=== PATIENT | male | born 1980 | race Caucasian/White ===

== ENCOUNTER 2018-04-26 10:57 | Emergency (ER) | payer MEDICAID ==
[~2018-04-26] VITALS: Ht 172.7 cm; Wt 89.1 kg
[2018-04-26 11:08] VITALS: Ht 172.7 cm; Wt 89.1 kg
[2018-04-26] MEDS ORDERED: ONDANSETRON 4 MG INJ IV STA (11:53)
[2018-04-26] MEDS ORDERED: ACETAMINOPHEN 500 MG TAB PO STA (11:53)
[2018-04-26] MEDS ORDERED: SOD CHLORIDE 0.9% 1,000 ML IV STA (11:53)
[2018-04-26] MEDS ORDERED: ONDA4TAB14 PO (13:08)
[2018-04-26 13:33] VITALS: BP 164/100; PULSE 93; RESP 20
--- NOTE | 2018-04-26 15:14 | ERD ---
ER Documentation Chief Complaint Chief Complaint vomitting & diarrhea since am HPI 38-year-old male presenting with vomiting and diarrhea times 2 days. Yesterday evening patient started having abdominal pain with vomiting and diarrhea. He had eaten food in outside restaurant and is unsure if he contracted food poi soning. No other person at home has similar symptoms. Denies abdominal pain. Medical history denies. NKDA. Surgical history denies. Social history denies ROS All systems reviewed and are negative except as per history of present illness. Medications Home Meds Active Scripts Ondansetron (Ondansetron Odt) 4 Mg Tab.rapdis, 4 MG PO Q6H PRN for NAUSEA AND/OR VOMITING, #10 TAB Prov:JOLLY VIERA PA-C 04/26/18 Allergies Allergies: Coded Allergies: No Known Allergy (Unverified , 04/26/18) PMhx/Soc Hx Alcohol Use: No Hx Substance Use: No Hx Tobacco Use: No Smoking Status: Never smoker FmHx Family History: No diabetes, No coronary disease, No other Physical Exam Vitals Vital Signs Date Temp Pulse Resp B/P (MAP) Pulse Ox O2 O2 Flow FiO2 Time Delivery Rate 04/26/18 98.3 93 20 164/100 98 Room Air 13:33 (121) 04/26/18 98.6 110 18 149/109 99 11:08 (122) Physical Exam GENERAL: The patient is well-appearing, well-nourished, in no acute distress CHEST: Clear to auscultation bilaterally. There are no rales, wheezes or rhonchi. HEART: Regular rate and rhythm. No murmurs, clicks, rubs or gallops. No S3 or S4. ABDOMEN:Soft, nontender and nondistended. Good bowel sounds. No rebound or guarding. No gross peritonitis. No gross organomegaly or masses. Results 24 hrs Current Medications Medications Dose Sig/Amberly Start Time Status Last (Trade) Ordered Route PRN Stop Time Admin Dose Reason Admin Sodium 1,000 ml @ Q1H STAT 04/26/18 DC 04/26/18 Chloride 1,000 mls/hr IV 11:53 12:12 04/26/18 12:52 Ondansetron 4 mg ONCE STAT 04/26/18 DC 04/26/18 HCl (Zofran IV 11:53 12:11 Inj) 04/26/18 11:55 1,000 mg ONCE STAT 04/26/18 DC 04/26/18 Acetaminophen PO 11:53 12:11 (Tylenol 04/26/18 11:55 Tab) Procedures/MDM ER course: Zofran and p.o. challenge given ED. 1 L normal saline given. Upon reevaluation patient symptoms dramatically improved. Tylenol given in ED. DM: 38-year-old male presenting with vomiting. I have low suspicion for acute abdominal emergency. I have low suspicion for dehydration. Patient's exam is non-concerning and vitals are stable. Patient is nontoxic appearing. I did not feel there is indication for blood work or further imaging. Patient is discharged stricter precautions and told to follow-up with primary care within 1-2 days for close evaluation. Patient is told if symptoms change or worsen to immediately return to the ER. All questions answered at discharge Departure Diagnosis: Primary Impression: Vomiting Condition: Stable Patient Instructions: Vomiting (6Y-Adult) Referrals: [facility] YOU HAVE RECEIVED A MEDICAL SCREENING EXAM AND THE RESULTS INDICATE THAT YOU DO NOT HAVE A CONDITION THAT REQUIRES URGENT TREATMENT IN THE EMERGENCY DEPARTMENT. FURTHER EVALUATION AND TREATMENT OF YOUR CONDITION CAN WAIT UNTIL YOU ARE SEEN I N YOUR DOCTORS OFFICE WITHIN THE NEXT 1-2 DAYS. IT IS YOUR RESPONSIBILITY TO MAKE AN APPOINTMENT FOR FOLOW-UP CARE. IF YOU HAVE A PRIMARY DOCTOR --you should call your primary doctor and schedule an appointment IF YOU DO NOT HAVE A PRIMARY DOCTOR YOU CAN CALL OUR PHYSICIAN REFERRAL HOTLINE AT IF YOU CAN NOT AFFORD TO SEE A PHYSICIAN YOU CAN CHOSE FROM THE FOLLOWING [facility] CL[facility] [address] [facility] [address] [facility] [address] [facility] [address] [facility] [address] [facility] [facility]. [address] Additional Instructions: FOLLOW UP WITH YOUR PRIMARY CARE PHYSICIAN TOMORROW.Return to this facility if you are not improving as expected. JOLLY VIERA PA-C Apr 26, 2018 15:14
== END 2018-04-26 13:34 | disposition home or self-care (01) ==
LOC: FTE 10:57
DX: R11.10 Vomiting, unspecified (principal)
CPT/HCPCS: 96361; 96374; J2405; J7030; Z7502; Z7610